=== PATIENT | female | born 2000 | race Caucasian/White ===

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

== ENCOUNTER 2021-05-25 21:24 | Emergency (ER) | payer BC, SELFPAY ==
[2021-05-25 21:32] VITALS: BP 123/84; PULSE 83; RESP 16; TEMP 37.7; O2SAT 100; BMI 22.6
--- NOTE | 2021-05-25 21:59 | ED_ITS ---
HPI - General Adult General: Chief complaint: General Medical Stated complaint: Eye is Bleeding\Allergies\headache Time Seen by Provider: 05/25/21 21:59 History of Present Illness: HPI narrative: 21-year-old female comes in today with illness for 5 days. Patient reports fever, body aches, and nasal congestion and sinus pressure. Patient was tested today for COVID-19 and was negative. Patient appears mildly unwell but not toxic. Skin is warm and dry. Associated symptoms: Reports malaise Review of Systems General: Reports: 10 or more systems reviewed and unremarkable except in HPI and below Const: Reports: malaise ENMT: Reports: nasal discharge and nasal congestion PFSH ED PFSH: Social History Smoking and tobacco status: current every day smoker Female Reproductive History: Date of last menstrual period: 04/01/21 Physical Exam Const: COMMON NORMALS: no acute distress and patient oriented x3 GENERAL APPEARANCE: cooperative HENMT: COMMON NORMALS: normocephalic and Normal external nose present HEAD & SCALP: normal to inspection and normocephalic NOSE: Normal external nose present and Abnormal mucous membranes and turbinates present TYMPANIC MEMBRANE: TM normal on the left and TM abnormal TM laterality: bilateral erythematous and with fluid behind the TM MOUTH: Normal oral and palatal mucosa present THROAT: posterior oropharynx normal Eye: GENERAL EYE: appearance normal, both eyes and all related structures Neck/C-Spine: COMMON NORMALS: full ROM Lymph: LYMPHATIC: no lymphadenopathy noted Chest: COMMONS NORMALS: normal inspection of the chest Resp: COMMON NORMALS: normal respiratory effort EFFORT & INSPECTION: Yes able to speak in complete sentences Cardio: COMMON NORMALS: regular rate and regular rhythm RATE: regular rate RHYTHM: regular rhythm GI: COMMON NORMALS: non-tender : COMMON NORMALS: Yes no CVA tenderness BLADDER/KIDNEY EXAM: Yes no CVA tenderness Back/Pelvis: COMMON NORMALS: no CVA tenderness and thoracic and lumbar spine normal to inspection Extremity: COMMON NORMALS: normal to inspection Neuro: COMMON NORMALS: patient oriented x3 and moves all extremities Psych: COMMON NORMALS: mental status grossly normal and cooperative Skin: COMMON NORMALS: no rashes or lesions noted GENERAL SKIN EXAM: no rashes or lesions noted Course Vital Signs: Vital signs: Vital Signs Temperature 99.9 F H 05/25/21 21:32 Pulse Rate 83 05/25/21 21:32 Respiratory Rate 16 05/25/21 21:32 Blood Pressure 123/84 05/25/21 21:32 Pulse Oximetry 100 05/25/21 21:32 MDM - General Adult MDM Narrative: Medical decision making narrative: Patient comes in for illness for 5 days. Patient was tested for COVID-19 today and was negative. On exam patient is alert oriented. Skin is warm and dry. Patient has sinus pain, nasal congestion, and bilateral tympanic membranes are erythematous. Differential diagnosis includes rhinosinusitis, upper respiratory infection, malingering. Believe to treat the patient with Augmentin 1 tablet twice a day for the next 7 days along with Flonase and pseudoephedrine. Believe patient probably has a rhinosinusitis bacterial in origin. We will also send out a PCR COVID-19 test for verification of the antigen negative. Discharge Plan Discharge Patient Disposition: Home Clinical Impression: Acute rhinosinusitis Condition: Stable Prescriptions: New Augmentin 500-125 mg tablet 1 tab PO BID Qty: 14 RF: 0 pseudoephedrine HCl 30 mg tablet 30 mg PO BID PRN (Reason: nasal congestion) Qty: 14 RF: 0 Flonase Allergy Relief 50 mcg/actuation spray,suspension 1 spray intranasal BID Qty: 16 RF: 0 Discharge Orders: Discharge ED (Routine); Ordered 05/25/21 Ordered By: Angel Wood Discharge Diet: Usual diet Discharge Activity: Increase activity as tolerated Patient Instructions: Sinusitis (ED), Opioid Safety Activity Restrictions/Additional Instructions: Home and rest. Drink plenty of fluids. Take medications as directed. Use Flonase nasal spray 1 spray twice a day until symptoms completely resolved. Take antibiotics 1 tablet twice a day for the next 7 days. Use pseudoephedrine 30 mg 1 twice a day as needed for runny nose or nasal congestion. Follow-up with primary care. You can contact us in 2 days for recheck on COVID-19 test. Stand Alone Forms: Work/School Release Coding Level of Care Code ED Administrative Assistant Data Entry for Brennan Baldwin
[2021-05-25] MEDS: amoxicillin-clav 875-125 mg Tablet 1 TAB PO (22:30)
[2021-05-25] MEDS: dexamethasone 4 mg Tablet 10 MG PO (22:31)
[2021-05-26 14:33] LABS: Coronavirus Test Green County Not Detected
--- NOTE | 2021-05-26 16:44 | PC.NURSE ---
notified of negative covid results
== END 2021-05-25 22:37 | disposition home or self-care (01) ==
PROVIDERS: Emergency Provider Nurse Practitioner Family
DX: J01.90 Acute sinusitis, unspecified (principal); F17.210 Nicotine dependence, cigarettes, uncomplicated; Z20.822 Contact with and (suspected) exposure to COVID-19
CPT/HCPCS: 87426; 87635; 99283; J8540

== ENCOUNTER 2021-09-03 00:24 | Emergency (ER) | payer BC, SELFPAY ==
[2021-09-03 00:44] VITALS: BP 123/81; PULSE 72; RESP 16; TEMP 36.3; O2SAT 100; BMI 23.6
--- NOTE | 2021-09-03 01:16 | ED_ITS ---
HPI - Dental/Oral General: Chief complaint: Dental/Oral Stated complaint: Mouth Pain Time Seen by Provider: 09/03/21 00:57 History of Present Illness: HPI Narrative: Patient is a 21-year-old female who comes to the ED with dental pain. Symptoms started approximately 3 days ago. Today her dental pain got worse. Pain is located around teeth #25 and 24 in the bottom jaw and around tooth #10 and 11 in the upper jaw. She rates her current pain is 8 out of 10. She has had dental issues in the past. Patient has a dentist she can call on Saturday morning to get an appointment set up for further evaluation. Associated symptoms: Denies fever(s) or odynophagia Review of Systems Const: Denies: fever(s), chills or fatigue Eyes: Denies: change in vision or eye discomfort ENMT: Reports: dental pain; Denies: throat pain, odynophagia, nasal discharge or nasal congestion Card: Denies: chest pain, palpitations, edema, swelling of feet/ankles, dyspnea on exertion or orthopnea Resp: Denies: dyspnea, productive cough or non-productive cough GI: Denies: abdominal pain, nausea, vomiting, diarrhea, constipation or hematochezia : Denies: flank pain, dysuria or hematuria Musc: Denies: neck pain, back pain or extremity swelling Skin/Breast: Denies: rash or new lesions Neuro: Denies: headache(s), numbness in extremities or weakness in extremities PFS ED PFSH: Social History Smoking and tobacco status: current every day smoker Female Reproductive History: Date of last menstrual period: 04/01/21 Physical Exam Const: COMMON NORMALS: no acute distress, patient oriented x3, healthy appearing and alert GENERAL APPEARANCE: cooperative and comfortable HENMT: COMMON NORMALS: normocephalic HEAD & SCALP: normocephalic FACE & SINUS: no edema MOUTH: Normal oral and palatal mucosa present TEETH & GINGIVA: Yes caries (dental caries on teeth 23-26.) and Yes poor dentition THROAT: posterior oropharynx normal and uvula midline Neck/C-Spine: COMMON NORMALS: supple GENERAL: Yes normal visual inspection Resp: COMMON NORMALS: normal respiratory effort, No retractions, No use of accessory muscles and clear to auscultation bilaterally AUSCULTATION: clear to auscultation bilaterally Cardio: COMMON NORMALS: regular rate, regular rhythm, S1 normal heart sound present, S2 normal heart sound present, No gallops present (Cardio), No clicks present (Cardio), No murmurs present (Cardio) and Peripheral pulses 2+ throughout RATE: regular rate RHYTHM: regular rhythm HEART SOUNDS: S1 normal heart sound present and S2 normal heart sound present PERIPHERAL PULSES: Peripheral pulses 2+ throughout GI: COMMON NORMALS: Normal to inspection, nondistended, normoactive bowel sounds present, Soft to palpation, non-tender and no masses PALPATION: Yes Soft to palpation : COMMON NORMALS: Yes no CVA tenderness BLADDER/KIDNEY EXAM: Yes no CVA tenderness Back/Pelvis: COMMON NORMALS: no CVA tenderness Extremity: COMMON NORMALS: normal to inspection Neuro: COMMON NORMALS: patient oriented x3 and moves all extremities SENSORIUM/ORIENTATION: Yes alert Skin: GENERAL SKIN EXAM: dry skin Course Vital Signs: Vital signs: Vital Signs Temperature 97.3 F L 09/03/21 01:43 Pulse Rate 71 09/03/21 01:43 Respiratory Rate 16 09/03/21 01:43 Blood Pressure 121/78 09/03/21 01:43 Pulse Oximetry 99 09/03/21 01:43 MDM - Dental/Oral MDM Narrative: Medical decision making narrative: Patient is a 21-year-old female comes to the ED with dental pain. Symptoms started approximately 3 days ago. Patient has a dentist that she is doing on Saturday to get set up an appointment for further evaluation. Vital stable. Patient has an extensive dental caries but no facial swelling noted. She appears nontoxic and in no acute distress or pain is sitting comfortably on exam chair when I entered the room. Patient was given a dose of hydrocodone while here in the ED to help with pain. She was also given a dose of clindamycin as well. She was discharged home with a prescription for clindamycin and told to contact her dentist on Saturday for further evaluation. Return ED precautions given. Patient started with plan. Discharge Plan Discharge Patient Disposition: Home Clinical Impression: Pain due to dental caries Condition: Stable Prescriptions: New clindamycin HCl 150 mg capsule 300 mg PO QID 7 Days Qty: 56 RF: 0 Celebrex 100 mg capsule 100 mg PO BID PRN (Reason: pain) Qty: 20 RF: 0 No Action Augmentin 500-125 mg tablet 1 tab PO BID Qty: 14 RF: 0 pseudoephedrine HCl 30 mg tablet 30 mg PO BID PRN (Reason: nasal congestion) Qty: 14 RF: 0 Flonase Allergy Relief 50 mcg/actuation spray,suspension 1 spray intranasal BID Qty: 16 RF: 0 Discharge Orders: Discharge ED (Routine); Ordered 09/03/21 Ordered By: Kaleb Muller Discharge Diet: Regular Discharge Activity: Resume usual activity Patient Instructions: Dental Caries (Cavities) Activity Restrictions/Additional Instructions: Follow-up with medical provider as directed. Contact your dentist on Saturday morning to get an appointment set up with them for further evaluation. Take medications as prescribed. Return to the ER or your medical provider if condition worsens. Please read and understand discharge instructions. Thank you for choosing [facility] for your healthcare needs today. Please realize this is an emergency room and that we are providing you with a medical screening exam and this may not be complete and all inclusive of all the testing and or work up that you may need to determine your ailment or severity of your illness. It is very important that you follow up as instructed or that you return to the Emergency Department should you have concerns or if your condition changes or worsens in any way. Coding Level of Care Code ED Business Support Associate for Brennan Baldwin Exam Comprehensive
[2021-09-03] MEDS: clindamycin 150 mg Capsule 300 MG PO (01:32)
[2021-09-03] MEDS: HYDROcodone-acetaminophen 7.5-325 mg Tablet 1 TAB PO (01:32)
[2021-09-03 01:43] VITALS: BP 121/78; PULSE 71; RESP 16; TEMP 36.3; O2SAT 99
== END 2021-09-03 01:47 | disposition home or self-care (01) ==
PROVIDERS: Emergency Provider Physician Assistant
DX: K02.9 Dental caries, unspecified (principal); F17.210 Nicotine dependence, cigarettes, uncomplicated
CPT/HCPCS: 99283